=== PATIENT | female | born 1935 | race Caucasian/White ===

== ENCOUNTER 2017-06-08 10:55 | Inpatient (IN) | payer OTHER ==
[~2017-06-08] VITALS: Ht 157.5 cm; Wt 62.1 kg
--- NOTE | ~2017-06-08 | HC ---
[facility] [place] [address] CONSULTATION Name: JOSSY NAVARRETE Room #: 435-P [facility] IN .R.#: [id number] Admission: 06/08/17 Attend Phys: Freddy Parker MD Discharge: 06/10/17 Date of : 31 Report #: [id number] THIS REPORT FOR: //name// CC: Freddy Singh DATE OF SERVICE: 06/08/2017 HISTORY OF PRESENT ILLNESS: This is an 81-year-old female patient who was discussed with Omer Kramer and the history I initially got that this patient had onset of what looks like memory problems at about 9:45. There was no focal neurological deficit detected, although there was some pain on the left side. I came in to evaluate the patient and talked to the patient herself. The patient has no short term memory and cannot recall anything. When I asked the patient's when did the symptoms actually started, he indicated that even at 9:00 when he talked to her, the patient was asking questions where she had no memory. I cannot even get a good history when she was completely normal or whether she even woke up normal and whether she had the same symptoms. Therefore, the time of onset is not at 9:45 a.m. as originally thought, it can be as early as the patient woke up with it and she was definitely abnormal at 9:00. He did not notice any focal deficit, but she has severe short-term memory problem. She does have associated hypertension, but she has not taken her antihypertensive this morning. Her loss of memory is severe. REVIEW OF SYSTEMS: Indicate that she sees Dr. Mcdonald apparently that is for some lung problems. 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 She does have a history of dyslipidemia. She had rheumatic fevers in the past. She does have a history of coronary artery disease with stent placement. 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 This was her relevant 14-point review of system. PAST MEDICAL HISTORY: Positive for coronary artery disease. FAMILY HISTORY: Negative for early age stroke. SOCIAL HISTORY: She does not drink any alcohol or smoke. PHYSICAL EXAMINATION: Indicate she is alert. She is responsive. She has no short term memory. She will ask the same question again and again. However, she is able to tell the date of of her as well as the daughter. 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 Her strength, sensation, reflexes and tones are symmetrical. There is no meningeal sign. She is somewhat nervous while doing [id number], but looks unremarkable. [address] [address] CONSULTATION Name: JOSSY NAVARRETE Room #: 435-P [facility] IN M.R.#: [id number] Admission: 06/08/17 Attend Phys: Freddy Parker MD Discharge: 06/10/17 Date of : 31 Report #: [id number] She is reasonably well-developed individual who does not have any dysmorphic features of eyes, ears and face. Her vision and hearing looks adequate. She has no edema, cyanosis or jaundice. She does have some rhonchi on either side. She does have mild difficulty with breathing, which appeared to be her baseline. Cardiac examination is otherwise unremarkable. Pulses are palpable. Blood pressure is 152/76, respirations 14, pulse is 93. Her blood pressure has fluctuated to some extent. Last blood pressure was 152/76, respirations 14, pulse is 93. Her CT scan of the head was unremarkable. 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 I am somewhat uncomfortable with her high blood pressure, but she did not take her antihypertensive. It can be of stroke or transient ischemic attack also. RECOMMENDATIONS: I discussed the diagnosis with them. I told them I cannot rule out stroke, but looks more like transient global amnesia. I discussed with them that time of onset should be considered before 9:00 a.m. She may have even woken up with it, but she was definitely abnormal at 9:00 and it is not clear when she was exactly normal. I discussed with them still the tPA. She is way outside the window because she is more than 78 and only 3-hour window apply to her. Clinically, it does not even look like stroke and looks more like transient global amnesia. We will follow this patient with you. Thank you very much for this referral. <ELECTRONICALLY SIGNED> By: Adelfo Sesay MD 06/10/17 2134 [id number] 17 Adelfo Sesay MD /nt
--- NOTE | ~2017-06-08 | EKG ---
[address] [address] ELECTROCARDIOGRAM REPORT Name: JOSSY NAVARRETE Room #: 435-P [facility] IN ..#: [id number] Admission: 06/08/17 Attend Phys: Freddy Parker MD Discharge: 06/10/17 Date of : 31 Report #: [id number] THIS REPORT FOR: //name// [facility] ED Test Date: 2017-06-08 Test Time: 14:08:27 Pat Name: JOSSY NAVARRETE Department: Room: [facility] Gender: F Mangle Tender Cloth: Aletha SNOW RN : 1935 Requested By: Satinder Rea Order Number: [id number] MD: Bandar Velarde Measurements Intervals [place] Rate: 89 P: 74 WI: 163 QRS: 12 QRSD: 84 T: 63 QT: 355 QTc: 432 Interpretive Statements Sinus rhythm Atrial premature complex Compared to ECG 09/19/2012 14:32:37 Sinus tachycardia no longer present Premature ventricular complexes are no longer present Electronically Signed On 06-12-2017 13:04:35 CDT by Bandar Velarde [email or web address] <ELECTRONICALLY SIGNED> By: Bandar Velarde MD, FACC 06/12/17 1304 1408 1408 Bandar Velarde MD, [facility] /EPI
--- NOTE | ~2017-06-08 | 2DMMODE ---
[facility] [address] [place] [address] 2 D/M-MODE ECHOCARDIOGRAM Name: JOSSY NAVARRETE Room #: 435-P [facility] IN M.R.#: [id number] Admission: 06/08/17 Attend Phys: Freddy Parker MD Discharge: Date of : 31 Date of Service: 06/09/17 1413 Report #: [id number] THIS REPORT FOR: //name// APPROVED REPORT Study performed: 06/09/2017 13:22:16 EXAM: Comprehensive 2D, Doppler, and color-flow Echocardiogram Patient Location: Echo lab Room #: [facility] Status: routine BSA: 1.63 HR: 100 bpm BP: 178/84 mmHg Rhythm: Tachycardia Other Information Study Quality: Adequate Technically limited study due to lung disease. Indications CVA. Hx: CAD, stents, HTN, HLP, COPD 2D Dimensions RVDd: 28.15 mm LVEF(%): 54.41 (>50%) IVSd: 12.66 (7-11mm) LVOT Diam: 19.79 (18-24mm) LVDd: 34.78 mm PWd: 11.38 (7-11mm) LVDs: 25.23 (25-40mm) Aortic Root: 30.53 mm Gill's LVEF: 54.41 % Volumes Left Atrial Volume (Systole) Single Plane 4CH: 55.65 mL Single Plane 2CH: 53.25 mL LA ESV Index: 37.00 mL/m2 Aortic Valve AoV Peak Roc.: 2.87 m/s AO Peak Gr.: 33.03 mmHg LVOT Max P.02 mmHg AO Mean Gr.: 17.58 mmHg AO V2 Mean: 1.97 m/s LVOT Max V: 1.73 m/s AO V2 VTI: 49.74 cm REGGIE Vmax: 1.86 cm2 [facility] [place] [address] 2 D/M-MODE ECHOCARDIOGRAM Name: JOSSY NAVARRETE Room #: 435-P [facility]..#: [id number] Admission: 06/08/17 Attend Phys: Freddy Parker MD Discharge: Date of : 31 Date of Service: 06/09/17 1413 Report #: [id number] Mitral Valve E/A Ratio: 0.6 MV Decel. Time: 220.62 ms MV E Max Roc.: 1.00 m/s MV A Roc.: 1.58 m/s MV PHT: 63.98 ms IVRT: 86.51 ms Pulmonary Valve PV Peak Roc.: 1.16 m/s PV Peak Gr.: 5.41 mmHg Tricuspid Valve TR Peak Roc.: 3.11 m/s RAP Estimate: 5.00 mmHg TR Peak Gr.: 38.77 mmHg PA Pressure: 44.00 mmHg Left Ventricle The left ventricle is normal size. There is normal LV segmental wall motion. Mild concentric left ventricular hypertrophy. Left ventricular systolic function is hyperdynamic. Mild LV gradient of 20mmHg. LVEF is >70%. Mild diastolic dysfunction is present (impaired relaxation pattern). Right Ventricle The right ventricle is normal size. The right ventricular systolic function is normal. Atria Left atrium is mildly dilated. The right atrium size is normal. Aortic Valve Aortic valve leaflets are not well visualized but are moderately calcified. No aortic regurgitation is present. Mild to moderate aortic stenosis. Peak pressure gradient of 33mmHg and a mean of 18mmHg. Mitral Valve Mitral valve leaflets are thickened and calcified. Moderate mitral annular calcification. Mild to moderate mitral regurgitation. No evidence of mitral valve stenosis. Tricuspid Valve The tricuspid valve is normal in structure. Mild tricuspid regurgitation. Estimated PAP is 45mmHg. [address] [address] 2 D/M-MODE ECHOCARDIOGRAM Name: JOSSY NAVARRETE Room #: 435-P [facility] IN [facility]#: [id number] Admission: 06/08/17 Attend Phys: Freddy Parker MD Discharge: Date of : 31 Date of Service: 06/09/17 1413 Report #: [id number] Pulmonic Valve Pulmonic valve is not well visualized. Great Vessels The aortic root is normal in size. Ascending aorta is not well visualized. IVC is normal in size and collapses >50% with inspiration. Pericardium There is no pericardial effusion. <Conclusion> The left ventricle is normal size. Mild concentric left ventricular hypertrophy. LVEF is >70%. Mild diastolic dysfunction is present (impaired relaxation pattern). The right ventricle is normal size. Left atrium is mildly dilated. The right atrium size is normal. Aortic valve leaflets are not well visualized but are moderately calcified. Mild to moderate aortic stenosis. Peak pressure gradient of 33mmHg and a mean of 18mmHg. Mild to moderate mitral regurgitation. Mild tricuspid regurgitation. Estimated PAP is 45mmHg. The aortic root is normal in size. There is no pericardial effusion. <ELECTRONICALLY SIGNED> By: Siva Willoughby MD, FACC 06/09/17 1413 141 141 Siva Willoughby MD, FACC /INF
--- NOTE | ~2017-06-08 | EEG ---
[facility] [place] [address] ELECTROENCEPHALOGRAM Name: JOSSY NAVARRETE Room #: 435-P [facility] IN M.R.#: [id number] Admission: 06/08/17 Attend Phys: Freddy Parker MD Discharge: 06/10/17 Date of : 31 Report #: [id number] THIS REPORT FOR: //name// CC: Freddy Ryanily [place] DATE OF SERVICE: 06/09/2017 This patient is being evaluated for what looks like transient global amnesia. The EEG was done by placing the electrodes by standard 10-20 system of electrode placement. Both referential and sequential montages were used for recording. Background activity in this patient's EEG is about 11 Hz and 40 microvolt. The patient went to sleep that is associated with bilaterally symmetrical sleep spindle and vertex sharp waves. Photic stimulation is unremarkable. Throughout the record, no active epileptiform activity was noticed. IMPRESSION: This patient's EEG is within normal limits. <ELECTRONICALLY SIGNED> By: Adelfo Sesay MD 06/10/17 2135 [id number] Adelfo Sesay MD /nt
[~2017-06-08 10:55] MED LIST: ALBUTEROL2.5 MG/0.5 INH; APAP500 PO; ATIVAN0.5 MG PO; AZITHROMYCIN; BENTYL 10 MG CA10 MG PO; C-500500 M1 PO; EYE DROPS; FORMULA 303 PO; HOME MEDICATION; HYDROCORTISONE30 G4 RECTAL; IRON325 PO; K DUR PO; LASIX PO; LEVAQUIN 500 M500 MG PO; MOM PO; MUCINEX600 MG PO; NORCO 5-325 TA1 EACH PO; OMEPRAZOLE20 M2 PO; POTASSIUM20 PO; PREDNISOLONE; PREDNISONE 20 M20 M1 PO; SPIRIVA INH; SYMBICORT160 MCG/4. INH; SYSTANE; ZETIA10 MG PO; [UNRECOGNIZED DRUG - REMARK]; [UNRECOGNIZED DRUG - SUPPLY]
[2017-06-08 10:57] VITALS: BP 200/100
[2017-06-08 11:27] LABS: ABSOLUTE NEUTROPHILS 4.5 thou/uL (1.4-8.2); BASOPHILS 0.6 % (0.0-2.0); EOSINOPHILS 2.4 % (0.0-3.0); HEMATOCRIT 42.2 % (37.0-47.0); HEMOGLOBIN 13.9 gm/dL (12.0-15.0); LYMPHOCYTES 21.3 % (24.0-44.0); MCH 30.4 pg (26.0-34.0); MCHC 32.9 g/dL (28.0-37.0); MCV 92.4 fL (80.0-100.0); PLATELET COUNT 172 thou/uL (150-400); POLYS 66.7 % (36.0-66.0); RBC 4.57 mil/uL (4.20-5.00); RDW 15.5 % (10.5-14.5); WBC 6.8 thou/uL (4.0-11.0)
[2017-06-08 11:40] LABS: ANION GAP 7 mmol/L (7-16); BUN 14 mg/dL (7-18); CALCIUM 9.3 mg/dL (8.5-10.1); CHLORIDE 104 mmol/L (98-107); CO2 28 mmol/L (21-32); CREATININE 0.9 mg/dL (0.6-1.0); GLUCOSE 112 mg/dL (74-106); POTASSIUM 3.6 mmol/L (3.5-5.1); SODIUM 139 mmol/L (136-145)
[2017-06-08 11:43] LABS: APTT 26.2 Seconds (24.5-32.8)
[2017-06-08 11:49] LABS: ALBUMIN 3.7 g/dL (3.4-5.0); MAGNESIUM 2.2 mg/dL (1.8-2.4); SGOT 17 U/L (15-37); SGPT 20 U/L (30-65); TOTAL BILIRUBIN 0.7 mg/dL (<0.1-1.0); TOTAL PROTEIN 7.2 g/dL (6.4-8.2); TROPONIN-I < 0.04 ng/mL (<0.06)
[2017-06-08 12:31] LABS: URINE BILIRUBIN NEGATIVE (Negative); URINE BLOOD NEGATIVE (Negative); URINE CLARITY CLEAR; URINE COLOR YELLOW; URINE GLUCOSE-RANDOM* NEGATIVE (Negative); URINE KETONES NEGATIVE (Negative); URINE LEUKOCYTES-REFLEX NEGATIVE (Negative); URINE NITRITE-REFLEX NEGATIVE (Negative); URINE PROTEIN (DIPSTICK) NEGATIVE (Negative); URINE UROBILINOGEN 0.2 E.U./dl (0.2-1.0)
[2017-06-08 12:43] LABS: AMP/METHAMP Negative (Negative); BARBITURATES Negative (Negative); BENZODIAZEPINES Negative (Negative); COCAINE Negative (Negative); METHADONE Negative (Negative); OPIATES POSITIVE (Negative); PCP Negative (Negative)
[2017-06-08 13:37] VITALS: BP 152/76
[2017-06-08 14:06] VITALS: BP 154/76
[2017-06-08 15:54] VITALS: BP 163/93
[2017-06-08 20:01] VITALS: BP 128/82
[2017-06-09 03:05] VITALS: BP 141/69
[2017-06-09 07:08] LABS: HEMATOCRIT 39.9 % (37.0-47.0); HEMOGLOBIN 13.1 gm/dL (12.0-15.0); MCH 30.7 pg (26.0-34.0); MCHC 32.8 g/dL (28.0-37.0); MCV 93.5 fL (80.0-100.0); RBC 4.26 mil/uL (4.20-5.00); RDW 15.8 % (10.5-14.5); WBC 7.6 thou/uL (4.0-11.0)
[2017-06-09 07:28] LABS: CALCIUM 8.9 mg/dL (8.5-10.1); CREATININE 0.9 mg/dL (0.6-1.0)
[2017-06-09 08:32] VITALS: BP 178/84
[2017-06-09 09:32] LABS: CHOLESTEROL 272 mg/dL (<200); HDL CHOLESTEROL 44 mg/dL (>40); LDL CHOLESTEROL 187 mg/dL (<100); TC:HDL 6.2 Ratio (Not establshd); TRIGLYCERIDE 207 mg/dL (<150); VLDL 41 mg/dL (<40)
[2017-06-09 10:41] LABS: POC BUN 20 mg/dL (7-18); POC CREATININE 0.8 mg/dL (0.6-1.3); POC GLUCOSE 103 mg/dL (70-99); POC HEMOGLOBIN 13.9 g/dL (12.0-15.0); POC POTASSIUM 4.6 mmol/L (3.5-5.1); POC SODIUM 141 mmol/L (136-145); POC TCO2 32 mmol/L (21-32)
[2017-06-09 14:30] VITALS: BP 144/69
[2017-06-09 15:55] VITALS: BP 146/79
[2017-06-09 19:45] VITALS: BP 151/83
[2017-06-10 08:00] VITALS: BP 159/88
[2017-06-10] MEDS ORDERED: ASA5UEC PO (10:56)
[2017-06-10] MEDS ORDERED: ATORVASTATIN CA40 MG PO (13:10)
[2017-06-10 13:38] VITALS: BP 159/88
== END 2017-06-10 14:13 | disposition home or self-care (01) | DRG 64 ==
LOC: ER 10:55 → 4S 13:29 → EROBS 13:29 → 4S 15:11 → ENTRNSPT 06-10 13:53 → EDTRNSPTSTS 06-10 13:56 → 4S 06-10 14:13
PROVIDERS: Emergency Medicine; Hospitalist; Psychiatry & Neurology Neuromuscular Medicine
DX: I63.9 Cerebral infarction, unspecified (principal); G93.40 Encephalopathy, unspecified; I50.30 Unspecified diastolic (congestive) heart failure; R47.01 Aphasia; E78.00 Pure hypercholesterolemia, unspecified; K59.09 Other constipation; E78.5 Hyperlipidemia, unspecified; I25.10 Atherosclerotic heart disease of native coronary artery without angina pectoris; G45.4 Transient global amnesia; I71.2 Thoracic aortic aneurysm, without rupture; I11.0 Hypertensive heart disease with heart failure; G47.33 Obstructive sleep apnea (adult) (pediatric); Z79.82 Long term (current) use of aspirin; Z79.899 Other long term (current) drug therapy; Z95.5 Presence of coronary angioplasty implant and graft; Z85.3 Personal history of malignant neoplasm of breast; Z92.21 Personal history of antineoplastic chemotherapy; Z90.11 Acquired absence of right breast and nipple; Z88.7 Allergy status to serum and vaccine; Z87.442 Personal history of urinary calculi; Z83.3 Family history of diabetes mellitus; Z87.891 Personal history of nicotine dependence
CPT/HCPCS: 10100

== ENCOUNTER → 2017-07-07 | Outpatient (CLI) | payer OTHER ==
[~2017-07-07] MED LIST changes: +ASA5UEC PO; +ATORVASTATIN CA40 MG PO
== END ==
LOC: CAT 12:09
DX: I67.82 Cerebral ischemia (principal); R42 Dizziness and giddiness; Z88.2 Allergy status to sulfonamides; Z88.4 Allergy status to anesthetic agent